=== PATIENT | male | born 1975 | race Two or more races ===

== ENCOUNTER 2020-05-05 08:33 | Emergency (ER) | payer MEDICAID ==
[~2020-05-05] VITALS: Ht 180.3 cm; Wt 75.0 kg
[2020-05-05 10:10] VITALS: BP 147/92
== END 2020-05-05 10:34 | disposition home or self-care (01) ==
LOC: EMS 08:33
DX: S90.112A Contusion of left great toe without damage to nail, initial encounter (principal); W20.8XXA Other cause of strike by thrown, projected or falling object, initial encounter; Y93.89 Activity, other specified; Y92.89 Other specified places as the place of occurrence of the external cause; Y99.8 Other external cause status